=== PATIENT | male | born 1950 | race African-American/Black ===

== ENCOUNTER 2017-08-30 12:28 | Emergency (ER) | payer SELFPAY ==
[~2017-08-30] VITALS: Ht 180.3 cm; Wt 110.0 kg
[2017-08-30 12:29] VITALS: BP 135/75
== END 2017-08-30 14:23 | disposition left against medical advice (07) ==
LOC: ER 12:56
DX: S09.90XA Unspecified injury of head, initial encounter (principal); Y08.89XA Assault by other specified means, initial encounter; Y93.89 Activity, other specified; Y92.89 Other specified places as the place of occurrence of the external cause; Y99.8 Other external cause status
CPT/HCPCS: 99283

== ENCOUNTER 2022-02-09 11:40 | Emergency (ER) | payer MEDICARE, MEDICAID ==
[~2022-02-09] VITALS: Ht 185.4 cm; Wt 105.2 kg
[2022-02-09 11:57] VITALS: BP 165/76
[2022-02-09] MEDS ORDERED: DOXYCYCLINE HYCLATE 100MG CAPSULE PO ONE (12:15)
[2022-02-09] MEDS ORDERED: CEFTRIAXONE SODIUM 500 MG/VIAL IM ONE (12:15)
[2022-02-09] MEDS ORDERED: DOXY-326 MT (13:07)
[2022-02-09 13:28] LABS: CLARITY URINE CLEAR (CLEAR); COLOR URINE YELLOW (YELLOW); KETONES URINE TRACE (NEGATIVE); LEUKOCYTE ESTERASE URINE NEGATIVE (NEGATIVE); NITRITE URINE NEGATIVE (NEGATIVE); OCCULT BLOOD URINE NEGATIVE (NEGATIVE); PH URINE 6.5 (4.5-8.0); PROTEIN URINE NEGATIVE (NEGATIVE); SPECIFIC GRAVITY URINE 1.045 (1.005-1.030); UROBILINOGEN URINE 0.2 E.U./dL (0.2-1.0)
[2022-02-11 05:10] LABS: NEISSERIA GONORRHOEAE NAA Negative (Negative)
== END 2022-02-09 14:26 | disposition home or self-care (01) ==
LOC: ER 11:40
DX: Z11.3 Encounter for screening for infections with a predominantly sexual mode of transmission (principal); R30.0 Dysuria
CPT/HCPCS: 81003; 87491; 87591; 96372; 99283; J0696

== ENCOUNTER 2022-10-04 09:25 | Emergency (ER) | payer MEDICARE, MEDICAID ==
[~2022-10-04] VITALS: Ht 185.4 cm; Wt 104.0 kg
[~2022-10-04 09:25] MED LIST: DOXY-326 MT
[2022-10-04 09:31] VITALS: BP 155/94
[2022-10-04] MEDS ORDERED: ACETAMINOPHEN 325MG TABLET PO ONE (11:30)
[2022-10-04] MEDS ORDERED: ACET-2708 MT (14:19)
[2022-10-04] MEDS ORDERED: CLOT15CR5 TP (14:19)
[2022-10-04 14:24] LABS: CLARITY URINE CLEAR (CLEAR); COLOR URINE YELLOW (YELLOW); KETONES URINE 1+ (NEGATIVE); LEUKOCYTE ESTERASE URINE NEGATIVE (NEGATIVE); NITRITE URINE NEGATIVE (NEGATIVE); OCCULT BLOOD URINE NEGATIVE (NEGATIVE); PH URINE 5.5 (4.5-8.0); PROTEIN URINE 1+ (NEGATIVE)
== END 2022-10-04 14:57 | disposition home or self-care (01) ==
LOC: ER 09:25
DX: N48.1 Balanitis (principal); I10 Essential (primary) hypertension; R73.03 Prediabetes
CPT/HCPCS: 81003; 99283

== ENCOUNTER 2022-12-22 08:23 | Emergency (ER) | payer MEDICARE, MEDICAID ==
[~2022-12-22] VITALS: Ht 185.4 cm; Wt 9.0 kg
[~2022-12-22 08:23] MED LIST changes: +ACET-2708 MT; +CLOT15CR5 TP; -DOXY-326 MT; +DOXY-456 MT
[2022-12-22 08:27] VITALS: BP 171/86
[2022-12-22 09:11] LABS: CLARITY URINE CLEAR (CLEAR); COLOR URINE YELLOW (YELLOW); KETONES URINE NEGATIVE (NEGATIVE); LEUKOCYTE ESTERASE URINE NEGATIVE (NEGATIVE); NITRITE URINE NEGATIVE (NEGATIVE); OCCULT BLOOD URINE NEGATIVE (NEGATIVE); PROTEIN URINE NEGATIVE (NEGATIVE); SPECIFIC GRAVITY URINE 1.041 (1.005-1.030)
[2022-12-22] MEDS ORDERED: FLUC150T46 PO (09:16)
[2022-12-26 13:07] LABS: NEISSERIA GONORRHOEAE NAA Negative (Negative)
== END 2022-12-22 09:41 | disposition home or self-care (01) ==
LOC: ER 08:23
DX: B37.42 Candidal balanitis (principal)
CPT/HCPCS: 81003; 87491; 87591; 99283